=== PATIENT | male | born 1985 | race Caucasian/White ===

== ENCOUNTER 2022-03-16 16:03 | Emergency (ER) | payer OTHER, SELFPAY ==
[2022-03-16 16:36] VITALS: BP 130/78; PULSE 77; RESP 12; TEMP 37.1; O2SAT 99
--- NOTE | 2022-03-16 17:30 | ED.EXTPRO ---
HPI - Extremity Problem General Chief complaint: Extremity Problem,Nontraumatic Stated complaint: bursitis Time Seen by Provider: 03/16/22 17:01 History of Present Illness HPI Narrative: 36-year-old male presenting to the emergency department for evaluation of swelling of the right elbow. Patient does have a history of bursitis which was thought to be secondary to an injury of overuse. Patient states he did begin doing push-ups again the last few days and states that he has been doing therapy for the day. Patient woke up and had worsened pain of his right elbow. Patient states over the last few days he has been resting it but states that the pain does continue to worsen. Related Data Allergies Allergy/AdvReac Type Severity Reaction Status Date / Time Sulfa (Sulfonamide Allergy Hives Verified 03/16/22 17:42 Antibiotics) Review of Systems Review of Systems: CONSTITUTIONAL: Denies fever, chills, or sweats. EYES: Denies visual changes, redness, or discharge. ENT: Denies rhinorrhea, congestion, sore throat, or otalgia. CARDIOVASCULAR: Denies chest pain, palpitations, or edema. RESPIRATORY: Denies cough or dyspnea. GASTROINTESTINAL: Denies abdominal pain, nausea, vomiting, or diarrhea. GENITOURINARY: Denies dysuria or hematuria. SKIN: Denies rash or itching. MUSCULOSKELETAL: See HPI NEUROLOGIC: Denies headache, numbness, or weakness. PSYCHIATRIC: Denies anxiety or depression. Exam Narrative: APPEARANCE: Well appearing, no pain, no distress, well-nourished. HEAD: normocephalic, atraumatic. EYES: PERRLA/EOMI, conjunctivae clear. NOSE: Normal no drainage EARS:TMS clear with good light reflex. THROAT: Pharynx clear, no exudate. NECK: Supple. No adenopathy, no masses. RESPIRATORY: Airway patent, respirations nonlabored. Clear to auscultation bilaterally, no rales, rhonchi, wheezing. CARDIOVASCULAR: Regular rate and rhythm without murmurs rubs or gallops. ABDOMINAL: Soft, nontender, nondistended, normal bowel sounds MUSCULOSKELETAL: Moves all extremities. Mild erythema overlying the right olecranon bursa. Minimal tenderness to palpation. No concern for cellulitis. NEURO: Alert. Cranial nerves II through XII intact. Good gait. Good coordination SKIN: Warm, dry. Normal Color PSYCHIATRIC: Normal affect/mood. Course Course Emergency Course: Patient was updated on the plan for treatment. Patient was encouraged of close follow-up with his primary care physician. All question concerns were addressed. Vital Signs Vital signs: Vital Signs Temperature 98.7 F 03/16/22 16:36 Pulse Rate 77 03/16/22 16:36 Respiratory Rate 12 03/16/22 16:36 Blood Pressure 130/78 03/16/22 16:36 Pulse Oximetry 99 03/16/22 16:36 Temperature 98.3 F 03/16/22 17:56 Pulse Rate 67 03/16/22 17:56 Respiratory Rate 16 03/16/22 17:56 Blood Pressure 121/67 03/16/22 17:56 Pulse Oximetry 100 03/16/22 17:56 Discharge Plan Discharge Clinical Impression: Bursitis Patient Disposition: Home, Self-Care Condition: Stable Instructions: Antibiotic Form, Elbow Bursitis (ED) Additional Instructions: Antibiotic as directed until completed. Prednisone as directed until completed. Continue symptomatic treatment and have close follow-up with your primary care physician. Prescriptions: New cephalexin 500 mg capsule 500 mg PO Q12H 5 Days Qty: 10 0RF prednisone 20 mg tablet 40 mg PO DAILY 5 Days Qty: 10 0RF Follow-up/Referrals: Usama Malave MD [Physician] - PHYSICIAN NOT ON STAFF,NONSTAFF [Non-Staff] - Flaquita Hernandez DO [Physician] -
[2022-03-16] MEDS: CEPHALEXIN 500 MG CAPSULE PO (17:42)
[2022-03-16] MEDS: predniSONE 20 MG TABLET 40 MG PO (17:42)
[2022-03-16 17:47] VITALS: BP 126/74; PULSE 70; RESP 16; TEMP 36.8; O2SAT 100
[2022-03-16 17:56] VITALS: BP 121/67; PULSE 67; RESP 16; TEMP 36.8; O2SAT 100
== END 2022-03-16 17:58 | disposition home or self-care (01) ==
LOC: ANHED 17:52
PROVIDERS: Emergency Provider Emergency Medicine
DX: M70.31 Other bursitis of elbow, right elbow (principal)
CPT/HCPCS: 99283; A9270; J7512